=== PATIENT | female | born 1985 | race Caucasian/White ===

== ENCOUNTER 2020-12-01 08:52 | Emergency (ER) | payer OTHER, SELFPAY ==
[2020-12-01 09:05] VITALS: BP 152/112; PULSE 108; RESP 16; TEMP 37.7; O2SAT 99
--- NOTE | 2020-12-01 09:11 | ED.URI ---
HPI - URI/Sore Throat General Chief Complaint: Upper Respiratory Infection Stated Complaint: sore throat Time Seen by Provider: 12/01/20 09:13 Source: patient and RN notes reviewed Mode of arrival: ambulatory Limitations: no limitations History of Present Illness HPI Narrative: 35 old female presents concern for 2-day history of sore throat, bilateral ear pain. Reports reports headache, intermittent cough, rhinorrhea, fever. She denies shortness of breath, body aches, chills, sweats. Reports she has been alternating Tylenol and ibuprofen. She has not been vaccinated for Covid. She denies any known sick contacts. MD elicited complaint: sore throat Related Data Home Medications Medication Instructions Recorded Confirmed No Home Medications 12/01/20 12/01/20 Allergies Allergy/AdvReac Type Severity Reaction Status Date / Time No Known Allergies Allergy Unknown Verified 12/01/20 08:54 Review of Systems Review of Systems: CONSTITUTIONAL: Reports malaise, fatigue, fever. EYES: Denies visual changes, redness, or discharge. ENT: Reports rhinorrhea, congestion, otalgia and sore throat. CARDIOVASCULAR: Denies chest pain, palpitations, or edema. RESPIRATORY: Reports cough. Denies dyspnea. GASTROINTESTINAL: Denies abdominal pain, nausea, vomiting, diarrhea SKIN: Denies rash or itching. MUSCULOSKELETAL: Denies myalgia. NEUROLOGIC: Reports headache. All systems reviewed & are unremarkable except as noted in HPI and below PMFSH Social History Social History Gender identity (if verbalized by the patient): Female Comments At time of signature, agree with nursing past medical, surgical, social and family history. There is no relevant family history pertinent to the presenting complaint Exam Narrative: GENERAL: Well-appearing, well-nourished, and in no acute distress. HEAD: Normocephalic EYES: PERRLA, conjunctivae clear ENT: Nares clear, clear discharge. Mucous membranes moist. TM pearly lane with sharp light reflex bilaterally; no tragal tenderness. Oropharynx erythematous without lesions. Tonsils not present. No drooling, no hoarseness, no trismus, uvula midline. NECK: Supple. No lymphadenopathy CHEST: Clear to auscultation, breath sounds equal. No wheezing, rhonchi, rales, or stridor. No respiratory distress, speaks in full sentences. HEART: Regular rate and rhythm. No murmur heard. SKIN: Warm, dry, no rash. NEURO: Alert and oriented x3. PSYCH: Normal mood and affect Course Course Emergency Course: Patient is aware of diagnosis, understands and agrees to treatment plan. Anticipatory guidance given. Patient agrees to follow-up as directed and is aware of reasons to seek care at the emergency department. Portions of this record may have been created with voice recognition software Vital Signs Vital signs: Vital Signs Temperature 99.8 F H 12/01/20 09:05 Pulse Rate 108 H 12/01/20 09:05 Respiratory Rate 16 12/01/20 09:05 Blood Pressure 152/112 H 12/01/20 09:05 Pulse Oximetry 99 12/01/20 09:05 Temperature 99.8 F H 12/01/20 09:05 Pulse Rate 108 H 12/01/20 09:05 Respiratory Rate 16 12/01/20 09:05 Blood Pressure 152/112 H 12/01/20 09:05 Pulse Oximetry 99 12/01/20 09:05 Reviewed. MDM - URI/Sore Throat MDM Narrative Medical decision making narrative: Differential diagnosis considered: Jha virus, strep pharyngitis, allergic rhinitis, upper respiratory tract infection, sinusitis, rhinosinusitis, nasopharyngitis. viral pharyngitis, otitis media, otitis externa, pneumonia, bronchitis, viral cough syndrome, viral syndrome, and influenza. Exam findings show no acute concerns or changes; patient is non-toxic appearing and is in no distress. Patient is appropriate for outpatient treatment and follow-up. Lab Data Attestation: I reviewed the patient's lab results. Critical Care Time Critical Care Time Critical Care Time: No Discharge Plan Discharge Clinical Impression: COVID-19 Pat
== END 2020-12-01 09:35 | disposition home or self-care (01) ==
PROVIDERS: Emergency Provider Nurse Practitioner
DX: U07.1 COVID-19 (principal)
CPT/HCPCS: 87081; 87426; 87880; 99213; C9803; G0463

== ENCOUNTER 2023-12-09 11:10 | Emergency (ER) | payer SELFPAY ==
[2023-12-09 11:25] VITALS: BP 151/101; PULSE 111; RESP 20; TEMP 36.6; O2SAT 100
--- NOTE | 2023-12-09 11:39 | ED.DENTAL ---
HPI - Dental/Oral General Chief complaint: Dental/Oral Stated complaint: loss of voice, no strength , fever Time Seen by Provider: 12/09/23 11:40 Source: patient Mode of arrival: ambulatory Limitations: no limitations History of Present Illness HPI Narrative: 38-year-old female presents with complaint of hoarse voice, dental pain, left jaw pain, left ear pain. Patient states that she feels fatigued, body aches. Reports I have bad teeth . Unable to afford a dentist. All systems reviewed and negative except as noted above. Related Data Allergies Allergy/AdvReac Type Severity Reaction Status Date / Time No Known Allergies Allergy Unknown Verified 12/09/23 11:13 Review of Systems Review of Systems: CONSTITUTIONAL: Denies fever, chills, or sweats. Reports fatigue. EYES: Denies visual changes, redness, or discharge. ENT: Denies rhinorrhea, congestion, sore throat, or otalgia. Reports dental pain. CARDIOVASCULAR: Denies chest pain, palpitations, or edema. RESPIRATORY: Denies cough or dyspnea. GASTROINTESTINAL: Denies abdominal pain, nausea, vomiting, or diarrhea. GENITOURINARY: Denies dysuria or hematuria. SKIN: Denies rash or itching. MUSCULOSKELETAL: Denies back pain, joint pain . Reports myalgia. NEUROLOGIC: Denies headache, numbness, or weakness. PSYCHIATRIC: Denies anxiety or depression. All other systems reviewed are negative, except as documented in HPI. PMFSH Social History Social History Gender identity (if verbalized by the patient): Female Comments At time of signature, agree with nursing past medical, surgical, social and family history. There is no relevant family history pertinent to the presenting complaint. Exam Narrative: GENERAL: This is a well-nourished, well-developed patient, in no apparent distress. HEAD: normocephalic, atraumatic. EYES: PERRL. Sclera clear/white. Vision is grossly intact. EARS: External ears normal NOSE: External nose normal MOUTH: multiple dental caries, erythema to gums. no fluctuance concerning for abscess. multiple broken teeth NECK: Neck supple, non-tender without lymphadenopathy, masses or thyromegaly. CARDIOVASCULAR: Regular rate and rhythm without murmurs, gallops, or rubs. RESPIRATORY: Clear to auscultation. Breath sounds equal bilaterally. No wheezes, rales, or rhonchi. SKIN: warm, Dry, intact with no suspicious lesions or rash, good texture and turgor. NEURO: awake, alert, and oriented to person, place and time. There were no obvious focal neurologic abnormalities. EXTREMITIES: No joint tenderness, effusion, or edema noted. Course Course Level of Care: Express Care Visit Vital Signs Vital signs: Vital Signs Temperature 36.6 C 12/09/23 11:25 Pulse Rate 111 H 12/09/23 11:25 Respiratory Rate 20 12/09/23 11:25 Blood Pressure 151/101 H 12/09/23 11:25 Pulse Oximetry 100 12/09/23 11:25 Oxygen Delivery Room Air 12/09/23 11:25 Temperature 36.6 C 12/09/23 11:25 Pulse Rate 111 H 12/09/23 11:25 Respiratory Rate 20 12/09/23 11:25 Blood Pressure 151/101 H 12/09/23 11:25 Pulse Oximetry 100 12/09/23 11:25 Oxygen Delivery Room Air 12/09/23 11:25 reviewed MDM - Dental/Oral MDM Narrative Medical decision making narrative: patient given dental clinic list. negative COVID, influenza and strep test. Patient's symptoms most likely related to dental infection. Patient nontoxic. Patient is aware of diagnosis, understands and agrees to treatment plan. Anticipatory guidance given. Patient agrees to follow-up as directed and is aware of reasons to seek care at the emergency department. Portions of this record may have been created with voice recognition software Lab Data Labs: Lab Results 12/09/23 12/09/23 Range/Units 10:40 11:40 POC Inf A,B Int Ctl [place] Yes POC Influenza A Ag Negative POC Influenza B Ag Negative POC SARS CoV-2 Ag Negative (Negative) POC Grp A Strep Screen Pres
[2023-12-09 11:56] LABS: EDSTREPNEGPOS1 Presumptive Negative
[2023-12-09 12:04] LABS: EDINFLUASCREEN Negative; EDINFLUBSCREEN Negative
== END 2023-12-09 12:10 | disposition home or self-care (01) ==
PROVIDERS: Emergency Provider Nurse Practitioner Family
DX: K04.7 Periapical abscess without sinus (principal); K02.9 Dental caries, unspecified; Z20.822 Contact with and (suspected) exposure to COVID-19
CPT/HCPCS: 87081; 87426; 87804; 87880; 99213; G0463